=== PATIENT | male | born 1945 | race Caucasian/White ===

== ENCOUNTER 2016-11-11 07:44 | Inpatient (IN) | payer BC ==
[2016-11-03 11:10] LABS: HEMATOCRIT 41.6 % (40.0-51.0); HEMOGLOBIN 14.3 g/dL (13.6-17.8)
[2016-11-03 12:10] LABS: ASCORBIC ACID (UR NOT ORDER) 40 (NEG); BILIRUBIN, URINE NEGATIVE (NEG); KETONE, URINE NEGATIVE (NEG); LEUKOCYTE ESTERASE(NOT OR NEG (NEG); WBC (NOT ORDERED) (RFLEX) 1 (0-5)
--- NOTE | ~2016-11-11 | OP ---
Record Of Operation [facility] [address] [place]. [address] NAME: HERB PAEZ : 43 STATUS : DIS IN PAT#: [id number] AGE: 71 ADM/REG DATE : 11/11/16 MR#: [id number] REPORT SERV DATE: 11/12/16 DICTATED BY: SHANNON NGUYEN DATE: 11/12/16 REPORT STATUS : Draft TRANSCRIBED BY: MODL DATE: 11/12/16 DATE OF PROCEDURE: 11/11/2016 SURGEON: Shannon Nguyen MD. TITLE OF OPERATION: Robot-assisted laparoscopic simple prostatectomy. PREOPERATIVE DIAGNOSES: 1. Benign prostatic hypertrophy with obstruction. 2. Constipation. POSTOPERATIVE DIAGNOSES: 1. Benign prostatic hypertrophy with obstruction. 2. Constipation. INDICATIONS: Mr. Paez is a 71-year-old male with a very large prostate of approximate 128 g. He has significant lower urinary tract symptoms with weak stream and severe LUTS. He also has constipation. It is felt that the mass of his prostate impinging into the rectum is contributing. He is here for simple prostatectomy. ANESTHESIA: General. COMPLICATIONS: None. IMPLANTS: A 24-Lithuanian three-way Perez catheter. A #10 round ELLIOTT drain. SPECIMEN: Prostatic adenoma for analysis. NARRATIVE: The patient was brought to the operating room, identified by his wristband. General anesthesia was induced and Ancef was given for preoperative antibiotics. He was placed in a dorsal lithotomy position, prepped and draped in sterile fashion. His abdomen was insufflated to pressure of 15 mmHg using a Veress needle. A 16-Lithuanian Perez catheter was placed into his bladder. The balloon was inflated with 10 mL of sterile water. An 8 mm port was placed in a supraumbilical position. The abdomen was inspected. There were no intraabdominal abnormalities. A standard X-Y port placement was performed with two 8 mm ports on the left side of the body and one 8 mm port on the right side of the body. A 12 mm port was placed in the right lower quadrant and a 5 mm port was placed in the upper right quadrant for per diem physical therapist assistant ports. The patient was then placed into Trendelenburg. The robot was docked. The operation was begun by dropping the bladder off the anterior abdominal wall with electrocautery. This exposed the prostate and the pubic bone. The prostate was defatted and the fibrofatty tissue was removed and discarded. Next, a horizontal cystotomy was made just proximal to the prostate. This was carried laterally to expose a very large intravesical median lobe. A 2-0 Vicryl suture was used to place into the median lobe as a retracting suture. Next, the ureteral orifices were identified and found to be in orthotopic position. An incision was made in the bladder mucosa just distal to the trigone on the median lobe. This dissection was carried through the detrusor muscle onto the Record Of Operation [facility] [address] [facility] [place]. [address] NAME: HERB PAEZ : 43 STATUS : DIS IN PAT#: [id number] AGE: 71 ADM/REG DATE : 11/11/16 MR#: [id number] REPORT SERV DATE: 11/12/16 DICTATED BY: SHANNON NGUYEN DATE: 11/12/16 REPORT STATUS : Draft TRANSCRIBED BY: ELIANA DATE: 11/12/16 prostatic adenoma. Dissection was carried laterally to the junction of the capsule. Next, I continued the dissection between the adenoma and the capsule laterally and superiorly. Once all landmarks were identified, the adenoma was followed inferiorly down to the junction of the transitional and peripheral zones. The dissection was then carried distally to the apex of the prostate. The adenoma was dissected free from the capsule laterally and superiorly from the base to the apex. The urethra was identified and sharply incised. The adenoma was then free of all attachments and removed from the prostatic capsule. It was placed into the EndoCatch bag. Arterial bleeding was controlled with pinpoint electrocautery. The bladder mucosa was then advanced into the prostatic fossa using a running 3-0 V-Loc suture. Perforating dorsal vein bleeding was controlled with a horseshoe shaped 3-0 V lock suture that was placed anteriorly on the capsule. Next, a 24-Lithuanian three way Perez catheter was placed into the urethra and into the bladder. The cystotomy was closed in two layers. The first layer was a mucosal layer with a 3-0 V-Loc suture and the second layer was a seromuscular layer with a 2-0 V-Loc suture. The balloon was inflated with 40 mL of sterile water. The bladder was irrigated, it was watertight. CBI was initiated. Next, the robot was undocked. The per diem physical therapist assistant port was removed. The port was closed with a 0 Vicryl suture using a Andriy-Kirstie device. A #10 round ELLIOTT drain was placed through the left most lateral robotic port. All other ports were removed under direct vision. The drain was sutured in place with a 2-0 Prolene suture. The supraumbilical incision was enlarged at the fascia and skin level. The adenoma and the bag were removed from the body and sent to Pathology for analysis. The fascia was closed with interrupted 0 Monocryl suture in a [id number] fashion. The wounds were irrigated clear. The skin was closed with 4-0 Monocryl suture. A Dermabond dressing was placed. A TAP block was placed preoperatively. The patient was awoken from anesthesia and transferred to the recovery room in stable condition. His urine was clear with the Perez on traction and CBI running upon leaving the operating room. JMARK/MODL Shannon Nguyen MD / [id number] CC: MD Aubrey Mendoza M.D.
[~2016-11-11 07:44] MED LIST: ACET500CAP PO; ARICEPT5 PO; ATV1 PO; B COMPLETE PO; CYANO1000T PO; EFFEXXR37 PO; FISH-EPA1000 MG PO; FLOMAX4 PO; GINKGO BILO2 PO; KLONO1 PO; KLONO2 PO; KLONO5 PO; MOBIC7.5 PO; MULTIPLE VIT PO; NAMENDA10 MG PO; NEUR300 PO; OSTEO BI-FLEX1 EACH PO; PERCOCET1 TA4 PO; VIT D PO; VIT E PO; VITAMIN D31000 UNIT PO; VITC500 PO; VITE PO; VYVANSE30 MG OR; ZOCOR20 PO
[2016-11-11 13:58] LABS: BASOPHILS 0.2 %; BASOPHILS ABSOLUTE 0.02 10/3/uL (0.0-0.16); EOSINOPHILS 0.2 %; EOSINOPHILS ABSOLUTE 0.02 10/3/uL (0.0-0.53); HEMATOCRIT 39.7 % (40.0-51.0); HEMOGLOBIN 14.1 g/dL (13.6-17.8); IMMATURE GRANULOCYTES 0.1 %; IMMATURE GRANULOCYTES ABSOLUTE 0.01 10/3/uL (0.0-0.11); LYMPHOCYTES 9.8 %; LYMPHOCYTES ABSOLUTE 0.79 10/3/uL (0.67-4.30); MANUAL DIFF NO %; MEAN CORPUS HGB CONC 35.5 g/dL (32.0-36.0); MEAN CORPUSCULAR HEMOGLOB 33.3 pg (26.0-34.0); MEAN CORPUSCULAR VOLUME 93.6 fL (80-100); MEAN PLATELET VOLUME 8.8 fL (9.2-13.0); MONOCYTES ABSOLUTE 0.16 10/3/uL (0.21-1.20); NEUTROPHILS 87.7 %; NEUTROPHILS ABSOLUTE 7.07 10/3/uL (2.02-8.40); PLATELET COUNT 171 10/3/uL (150-400); RBC DISTRIBUTION WIDTH 12.1 % (12.0-16.0); RED CELL COUNT 4.24 10/6/uL (4.7-6.1); WHITE BLOOD CELLS 8.1 10/3/uL (4.5-10.5)
[2016-11-11 14:11] LABS: CALCIUM, SERUM 8.5 MG/DL (8.5-10.4); CHLORIDE, SERUM 109 MMOL/L (96-112); CO2 (CARBON DIOXIDE) 28 MMOL/L (24-34); GFR AFRICAN AMERICAN 63 ML/MIN (>=60); GFR NON AFRICAN AMERICAN 55 ML/MIN (>=60); GLUCOSE, SERUM 121 MG/DL (60-99); POTASSIUM, SERUM 4.2 MMOL/L (3.5-5.3); SODIUM, SERUM 145 MMOL/L (135-148)
[2016-11-11 14:12] LABS: BUN (BLOOD UREA NITROGEN) 20 MG/DL (6-23)
[2016-11-12 07:17] LABS: BASOPHILS 0.2 %; BASOPHILS ABSOLUTE 0.02 10/3/uL (0.0-0.16); EOSINOPHILS 0.1 %; EOSINOPHILS ABSOLUTE 0.01 10/3/uL (0.0-0.53); HEMOGLOBIN 13.5 g/dL (13.6-17.8); IMMATURE GRANULOCYTES 0.2 %; IMMATURE GRANULOCYTES ABSOLUTE 0.02 10/3/uL (0.0-0.11); LYMPHOCYTES 13.5 %; LYMPHOCYTES ABSOLUTE 1.39 10/3/uL (0.67-4.30); MEAN CORPUS HGB CONC 34.6 g/dL (32.0-36.0); MEAN CORPUSCULAR HEMOGLOB 32.6 pg (26.0-34.0); MEAN CORPUSCULAR VOLUME 94.2 fL (80-100); MEAN PLATELET VOLUME 9.5 fL (9.2-13.0); MONOCYTES 14.8 %; MONOCYTES ABSOLUTE 1.53 10/3/uL (0.21-1.20); NEUTROPHILS 71.2 %; NEUTROPHILS ABSOLUTE 7.35 10/3/uL (2.02-8.40); PLATELET COUNT 174 10/3/uL (150-400); RBC DISTRIBUTION WIDTH 12.2 % (12.0-16.0); RED CELL COUNT 4.14 10/6/uL (4.7-6.1); WHITE BLOOD CELLS 10.3 10/3/uL (4.5-10.5)
[2016-11-12 07:19] LABS: MANUAL DIFF NO %
[2016-11-12 07:24] LABS: BUN (BLOOD UREA NITROGEN) 14 MG/DL (6-23); CALCIUM, SERUM 8.5 MG/DL (8.5-10.4); CHLORIDE, SERUM 108 MMOL/L (96-112); CO2 (CARBON DIOXIDE) 27 MMOL/L (24-34); CREATININE 1.04 MG/DL (0.70-1.30); GFR AFRICAN AMERICAN 83 ML/MIN (>=60); GFR NON AFRICAN AMERICAN 71 ML/MIN (>=60); GLUCOSE, SERUM 135 MG/DL (60-99); POTASSIUM, SERUM 3.8 MMOL/L (3.5-5.3); SODIUM, SERUM 143 MMOL/L (135-148)
[2016-11-12] MEDS ORDERED: PCET PO (13:49)
[2016-11-12] MEDS ORDERED: CIP5 PO (13:49)
[2016-11-12] MEDS ORDERED: DSS PO (13:50)
== END 2016-11-12 15:26 | disposition home or self-care (01) | DRG 707 ==
LOC: SDC/OF 07:44 → PACU 13:38 → 4SO 16:37
PROVIDERS: Urology
PROC: 8E0W4CZ Robotic Assisted Procedure of Trunk Region, Percutaneous Endoscopic Approach (ICD-10-PCS; 2016-11-11)
PROC: 0VT04ZZ Resection of Prostate, Percutaneous Endoscopic Approach (ICD-10-PCS; principal; 2016-11-11 12:00)
DX: N40.1 Benign prostatic hyperplasia with lower urinary tract symptoms (principal); N13.8 Other obstructive and reflux uropathy; C61 Malignant neoplasm of prostate; F41.9 Anxiety disorder, unspecified; J45.909 Unspecified asthma, uncomplicated
CPT/HCPCS: 36415; 80048; 81001; 82570; 85014; 85018; 85025; 86850; 86900; 86901; 88304; 88307; 93005; A9270-GY; J0690; J2250; J2405; J2710; J2795; J3010